=== PATIENT | female | born 1985 | race Asian ===

== ENCOUNTER 2019-03-31 16:54 | Emergency (ER) | payer BC ==
[~2019-03-31] VITALS: Ht 147.3 cm; Wt 49.9 kg
[2019-03-31 17:10] VITALS: BP 103/65
[2019-03-31] MEDS ORDERED: BENZ100C PO (17:51)
[2019-03-31] MEDS ORDERED: AZIT250T6 PO (17:51)
--- NOTE | 2019-03-31 17:51 | PHYS DOC ---
Past Medical History Past Medical History: Depression Past Surgical History: No Surgical History Alcohol Use: None Drug Use: None Adult General Chief Complaint Chief Complaint: COUGH HPI HPI Patient is a 33 year old female who presents with cough and fever and sinus congestion for last week. Patient states she's been having chills but has not taken her temperature. Patient denies having a productive cough. Patient states she's only been taking Tylenol and ibuprofen at home. Review of Systems Review of Systems Constitutional: fever or chills [] HENT: nasal congestion or denies sore throat [] Respiratory: cough or denies shortness of breath [] All other systems were reviewed and found to be within normal limits, except as documented in this note. Allergies Allergies Allergies Coded Allergies Type Severity Reaction Last Updated Verified No Known Drug Allergies 01/03/18 No Physical Exam Physical Exam Constitutional: Well developed, well nourished, no acute distress, non-toxic appearance. [] HENT: Normocephalic, atraumatic, bilateral external ears normal, oropharynx moist, no oral exudates, nose normal. Maxillary sinus tenderness. [] Eyes: PERRLA, EOMI, conjunctiva normal, no discharge. [] Neck: Normal range of motion, no tenderness, supple, no stridor. [] Cardiovascular:Heart rate regular rhythm, no murmur [] Lungs & Thorax: Bilateral breath sounds clear to auscultation [] Abdomen: Bowel sounds normal, soft, no tenderness, no masses, no pulsatile masses. [] Skin: Warm, dry, no erythema, no rash. [] Neurologic: Alert and oriented X 3, normal motor function, normal sensory fu nction, no focal deficits noted. [] Psychologic: Affect normal, judgement normal, mood normal. [] Current Patient Data Vital Signs Vital Signs Date Time Temp Pulse Resp B/P (MAP) Pulse Ox O2 Delivery O2 Flow Rate FiO2 03/31/19 17:10 100.1 103 18 103/65 (78) 96 Room Air 100.1 EKG EKG [] Radiology/Procedures Radiology/Procedures [] Course & Med Decision Making Course & Med Decision Making Lungs are clear to auscultation lobes. Patient has a temp of 100.1 in the e mergency room. Patient has maxillary sinus tenderness with palpation. Speaks in full complete sentences. Skin pink warm and dry. Alert and oriented. Ambulatory with a steady gait. Patient denies nausea, vomiting, abdominal pain, back pain, ear pain, chest pain, shortness of breath, dizziness, headache, visual changes, weaknesses. Tympanic is pink in color. Throat is pink and without exudates or swelling. Dragon Disclaimer Dragon Disclaimer This electronic medical record was generated, in whole or in part, using a voice recognition dictation system. Departure Departure Impression: Primary Impression: Sinusitis Additional Impressions: Fever Cough Disposition: 01 HOME, SELF-CARE Condition: STABLE Referrals: MEGAN HOWARD MD (PCP) Patient Instructions: Cough, Adult, Fever, Adult, Sinusitis Additional Instructions: Follow up with primary care provider. Take medication as prescribed. Drink plenty of fluids. Continue taking Tylenol or Ibuprofen for pain. Scripts Benzonatate (TESSALON PERLE) 100 Mg Capsule 1 CAP PO TID, #30 CAP Prov: PARVEZ WALKER APRN 03/31/19 Azithromycin (AZITHROMYCIN TABLET) 250 Mg Tablet 1 PKG PO UD for 5 Days, #6 TAB 0 Refills 2 the first day followed by 1 for days 2-5 Prov: PARVEZ WALKER APRN 03/31/19 Problem Qualifiers Primary Impression: Sinusitis Sinusitis location: maxillary Chronicity: acute Recurrence: non- recurrent Qualified Codes: J01.00 - Acute maxillary sinusitis, unspecified Additional Impressions: Fever Fever type: unspecified Qualified Codes: R50.9 - Fever, unspecified PARVEZ WALKER APRN Mar 31, 2019 17:51
== END 2019-03-31 18:10 | disposition home or self-care (01) ==
LOC: ER 16:54
DX: J01.00 Acute maxillary sinusitis, unspecified (principal)
CPT/HCPCS: 99283